=== PATIENT | female | born 1985 | race African-American/Black ===

== ENCOUNTER 2017-12-26 15:00 | Emergency (ER) | payer OTHER ==
[2017-12-26] MEDS ORDERED: KETOROLAC 30 MG/ML INJ ONE (16:51)
[2017-12-26] MEDS ORDERED: DIPHENHYDRAMINE 50 MG/ML VIAL ONE (16:51)
[2017-12-26] MEDS ORDERED: METOCLOPRAMIDE 10 MG/2mL INJ ONE (16:51)
--- NOTE | 2017-12-26 16:57 | ER ---
Nurse's Notes [facility] Name: Dewayne Gautam Age: 32 yrs Sex: Female : 1985 Arrival Date: 12/26/2017 Time: 15:03 Bed 11 Private MD: Diagnosis: Migraine Presentation: 12/26 15:18 Presenting complaint: Patient states: abel been having headache for a week now, reports hj ears being hot; denies fever and chills;. Transition of care: patient was not received from another setting of care. Onset of symptoms was December 26, 2017. Care prior to arrival: None. 15:18 Method Of Arrival: Ambulatory hj 15:18 Acuity: ISHMAEL 4 hj Triage Assessment: 15:19 Headache History: Denies prior headaches. General: Appears in no apparent distress. hj uncomfortable, Behavior is calm, cooperative, appropriate for age. Pain: Complains of pain in head Pain currently is 10 out of 10 on a pain scale. Quality of pain is described as aching, Pain began a week ago; Also complains of. 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 - Social history:: Smoking status: Patient/guardian denies using tobacco. Screenin:30 Abuse screen: Denies threats or abuse. Denies injuries from another. Nutritional sg screening: No deficits noted. Tuberculosis screening: No symptoms or risk factors identified. Never had TB. Fall Risk None identified. Assessment: 16:30 General: Appears in no apparent distress. comfortable, slender, well groomed, well sg developed, well nourished, Behavior is calm, cooperative, appropriate for age, Smells of alcohol. Pain: Complains of pain in top of head pt reports the pain moves all over her head, intermittently. Neuro: Level of Consciousness is awake, alert, obeys commands, Oriented to person, place, time, situation, Moves all extremities. Gait is steady, Speech is normal, Facial symmetry appears normal, Reports headache. Cardiovascular: Patient's skin is warm and dry. Chest pain is denied. Respiratory: No deficits noted. Airway is patent Respiratory effort is even, unlabored, Respiratory pattern is regular, symmetrical. GI: No deficits noted. No signs and/or symptoms were reported involving the gastrointestinal system. : No deficits noted. No signs and/or symptoms were reported regarding the genitourinary system. EENT: No signs and/or symptoms were reported regarding the EENT system. Derm: No signs and/or symptoms reported regarding the dermatologic system. Musculoskeletal: No signs and/or symptoms reported regarding the musculoskeletal system. 16:50 Reassessment: Patient appears in no apparent distress at this time. at bedside for PIV, sg pt states " oh no, can you just give me a prescription for some pills, cause i dont want all of that." pt family/friend states " yea we just need some scripts, cause [facility] so we just need some pills.". 16:55 Reassessment: Patient is alert, oriented x 3, equal unlabored respirations, skin sg warm/dry/pink. Yusuf BARRY notified of pt request. Vital Signs: 15:20 BP 127 / 84; Pulse 84; Resp 18; Temp 97.8(TE); Pulse Ox 100% on R/A; Weight 51.26 kg; hj Height 5 ft. 5 in. (165.10 cm); Pain 10/10; 16:30 BP 124 / 82; Pulse 79; Resp 18; Pulse Ox 99% on R/A; Pain 10/10; sg 15:20 Body Mass Index 18.81 (51.26 kg, 165.10 cm) ED Course: 15:03 Patient arrived in ED. rg4 15:19 Triage completed. hj 15:20 Arm band placed on right wrist. hj 16:22 Bucky Adams PA is PHCP. jr8 16:22 Renny Valdez MD is Attending Physician. jr8 16:30 Patient has correct armband on for positive identification. Bed in low position. Call sg light in reach. Pulse ox on. NIBP on. 16:33 Luis Salazar, RN is Primary Nurse. sg 17:00 No provider procedures requiring assistance completed. Patient did not have IV access sg during this emergency room visit. Administered Medications: 16:55 Not Given (Patient Refused): TORadol 30 mg IVP once iw 16:56 Not Given (Patient Refused): Reglan 10 mg IVP once; over 1 to 2 minutes iw 16:56 Not Given (Patient Refused): Benadryl 25 mg IVP once iw Outcome: 16:56 Discharge ordered by MD. banda 17:00 Discharged to home ambulatory, with family. 17:00 Condition: good 17:00 Discharge instructions given to patient, Instructed on discharge instructions, follow up and referral plans. medication usage, Demonstrated understanding of instructions, follow-up care, medications. 17:05 Patient left the ED. em Signatures: Luis Salazar RN RN sg Rashawn Johnson, WORKING FOREMAN WORKING FOREMAN em Bucky Adams, ASHA BARRY jr8 Shashi Cho RN RN hj Garcia, Rubi [facility], [place] Raquel Jiang RN iw Corrections: (The following items were deleted from the chart) 15:22 15:20 Pulse 84bpm; Resp 18bpm; Pulse Ox 100% RA; Temp 97.8F Temporal; 51.26 kg; Height hj 5 ft. 5 in.; BMI: 18.8; Pain 10/10; hj 15:26 15:18 Acuity: ISHMAEL 4 hj hj 16:17 15:18 Acuity: ISHMAEL 3 hj hj
--- NOTE | 2017-12-26 16:57 | EDPHYS ---
Physician Documentation [facility] Name: Dewayne Gautam Age: 32 yrs Sex: Female : 1985 Arrival Date: 12/26/2017 Time: 15:03 Bed 11 Private MD: ED Physician Renny Valdez HPI: 12/26 16:58 This 32 yrs old Black Female presents to ER via Ambulatory with complaints of Headache. jr8 16:58 The patient complains of pain to the back and top of head. The patient describes the jr8 headache as a pressure, throbbing. Onset: The symptoms/episode began/occurred acutely, 1 week(s) ago. Associated signs and symptoms: Pertinent positives: dizziness, Photophobia. Severity of symptoms: At its worst the pain was moderate, in the emergency department the pain is unchanged. Headache History: Denies prior headaches. The symptoms are alleviated by nothing. the symptoms are aggravated by lights, movement, noise. The patient has not experienced similar symptoms in the past. The patient has not recently seen a physician. has been trying OTC medications with minimal relief. Denies trauma to head or fevers . 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 - Social history:: Smoking status: Patient/guardian denies using tobacco. ROS: 16:58 Eyes: Negative for injury, pain, redness, and discharge, ENT: Negative for injury, jr8 pain, and discharge, Neck: Negative for injury, pain, and swelling, Cardiovascular: Negative for chest pain, palpitations, and edema, Respiratory: Negative for shortness of breath, cough, wheezing, and pleuritic chest pain, Back: Negative for injury and pain, MS/Extremity: Negative for injury and deformity, Skin: Negative for injury, rash, and discoloration. 16:58 Abdomen/GI: Positive for nausea, Negative for abdominal pain, vomiting, diarrhea, abdominal cramps, abdominal distension, anorexia, dysphagia, hematemesis, black/tarry stool, rectal pain, rectal bleeding, bowel incontinence, flatulence. 16:58 Neuro: Positive for dizziness, headache, Negative for altered mental status, gait disturbance, hearing loss, loss of consciousness, numbness, seizure activity, speech changes, syncope, near syncope, tingling, tinnitus, tremor, visual changes, weakness. Exam: 16:58 Head/Face: Normocephalic, atraumatic. Eyes: Pupils equal round and reactive to light, jr8 extra-ocular motions intact. Lids and lashes normal. Conjunctiva and sclera are non-icteric and not injected. Cornea within normal limits. Periorbital areas with no swelling, redness, or edema. ENT: Nares patent. No nasal discharge, no septal abnormalities noted. Tympanic membranes are normal and external auditory canals are clear. Oropharynx with no redness, swelling, or masses, exudates, or evidence of obstruction, uvula midline. Mucous membranes moist. Neck: Trachea midline, no thyromegaly or masses palpated, and no cervical lymphadenopathy. Supple, full range of motion without nuchal rigidity, or vertebral point tenderness. No Meningismus. Cardiovascular: Regular rate and rhythm with a normal S1 and S2. No gallops, murmurs, or rubs. Normal PMI, no JVD. No pulse deficits. Respiratory: Lungs have equal breath sounds bilaterally, clear to auscultation and percussion. No rales, rhonchi or wheezes noted. No increased work of breathing, no retractions or nasal flaring. Abdomen/GI: Soft, non-tender, with normal bowel sounds. No distension or tympany. No guarding or rebound. No evidence of tenderness throughout. Back: No spinal tenderness. No costovertebral tenderness. Full range of motion. Skin: Warm, dry with normal turgor. Normal color with no rashes, no lesions, and no evidence of cellulitis. MS/ Extremity: Pulses equal, no cyanosis. Neurovascular intact. Full, normal range of motion. Neuro: Awake and alert, GCS 15, oriented to person, place, time, and situation. Cranial nerves II-XII grossly intact. Motor strength 5/5 in all extremities. Sensory grossly intact. Cerebellar exam normal. Normal gait. Vital Signs: 15:20 BP 127 / 84; Pulse 84; Resp 18; Temp 97.8(TE); Pulse Ox 100% on R/A; Weight 51.26 kg; hj Height 5 ft. 5 in. (165.10 cm); Pain 10/10; 16:30 BP 124 / 82; Pulse 79; Resp 18; Pulse Ox 99% on R/A; Pain 10/10; sg 15:20 Body Mass Index 18.81 (51.26 kg, 165.10 cm) MDM: 16:22 Patient medically screened. jr8 16:55 Data reviewed: vital signs, nurses notes, and as a result, I will discharge patient. jr8 Data interpreted: Pulse oximetry: on room air is 100 %. Interpretation: normal. Counseling: I had a detailed discussion with the patient and/or guardian regarding: the historical points, exam findings, and any diagnostic results supporting the discharge/admit diagnosis, the need for outpatient follow up, a family practitioner, to return to the emergency department if symptoms worsen or persist or if there are any questions or concerns that arise at home. ED course: Patient opted to not have IV medicine to help headache. Wants to just take PO prescription at home . Administered Medications: 16:55 Not Given (Patient Refused): TORadol 30 mg IVP once iw 16:56 Not Given (Patient Refused): Reglan 10 mg IVP once; over 1 to 2 minutes iw 16:56 Not Given (Patient Refused): Benadryl 25 mg IVP once iw Disposition: 18:34 Co-signature as Attending Physician, Renny Valdez MD. rn Disposition: 18 16:56 Discharged to Home. Impression: Migraine. - Condition is Stable. - Discharge Instructions: Migraine Headache. - Prescriptions for Fioricet 50- 325-40 mg Oral tablet - take 2 tablet by ORAL route every 4 hours as needed not to exceed 6 tablets per 24hrs; 20 tablet. Zofran 4 mg Oral Tablet - take 1 tablet by ORAL route every 12 hours As needed; 20 tablet. - Work release form, Medication Reconciliation Form, Thank You Letter, Antibiotic Education, Prescription Opioid Use form. - Follow up: Private Physician; When: 2 - 3 days; Reason: Recheck today's complaints, Continuance of care, Re-evaluation by your physician. - Problem is new. - Symptoms have improved. Signatures: Luis Salazar RN RN sg Rashawn Johnson, CONDUIT CLEANER CONDUIT CLEANER Renny Rangel MD MD rn Roszak, Josh, PA PA jr8 Shashi Cho RN RN Raquel Fernandes RN iw Corrections: (The following items were deleted from the chart) 16:56 16:41 IV Saline Lock ordered. jr8 iw
== END 2017-12-26 17:05 | disposition home or self-care (01) ==
LOC: ER 15:00
DX: G43.909 Migraine, unspecified, not intractable, without status migrainosus (principal); F41.9 Anxiety disorder, unspecified
CPT/HCPCS: 99283; J2765

== ENCOUNTER 2018-04-12 22:07 | Emergency (ER) | payer OTHER ==
[2018-04-12 23:33] LABS: Absolute Lymphocytes (CBC) 2.4 K/uL (0.7-4.9); Absolute Monocytes 0.4 K/uL (0.1-1.3); Absolute Neutrophil 1.7 K/uL (1.8-8.0); Basophils % 0.9 % (0-1.3); Eosinophils % 2.4 % (0-4.4); Hematocrit 41.9 % (36.0-45.0); Lymphocytes % 52.7 % (15.3-44.8); MCH 29.3 pg (27.0-35.0); MCV 87.6 fL (80-100); Monocytes % 7.6 % (3.3-12.3); RBC Red Blood Cell Count 4.78 M/uL (3.86-4.86)
[2018-04-12 23:57] LABS: Urine Blood NEGATIVE (NEG); Urine Glucose NEGATIVE (NEG); Urine Protein NEGATIVE (NEG)
[2018-04-12] MEDS ORDERED: LIDOCAINE VISCOUS 2% SOLN 15 ML UDC ONE (23:59)
[2018-04-12] MEDS ORDERED: FAMOTIDINE 20 MG/2 ML VIAL IV ONE (23:59)
[2018-04-12] MEDS ORDERED: MAGNE/ALUM HYDROXD 30 ML UCUP ONE (23:59)
[2018-04-13] LABS: Urine Bacteria <20 /HPF (<20); Urine RBC <5 /HPF (NONE SEEN)
[2018-04-13 00:01] LABS: Urine Culture Reflex Order REFLEXED
[2018-04-13 00:34] LABS: ALT/SGPT 8 U/L (12-78); AST/SGOT 15 U/L (15-37); Albumin 4.2 g/dL (3.4-5.0); Alkaline Phosphatase 70 U/L (45-117); Amylase Level 108 U/L (25-115); BUN Blood Urea Nitrogen 10 mg/dL (7-18); Bicarbonate 25 mmol/L (21-32); Bilirubin Direct 0.1 mg/dL (0-0.2); Bilirubin Total 0.3 mg/dL (0.2-1.0); Glucose Level 81 mg/dL (74-106); Lipase 141 U/L (73-393); Magnesium 2.1 mg/dL (1.8-2.4); Protein, Total 8.1 g/dL (6.4-8.2); Sodium Level 138 mmol/L (136-145)
--- NOTE | 2018-04-13 01:31 | ER ---
Nurse's Notes [facility] Name: Dewayne Gautam Age: 32 yrs Sex: Female : 1985 Arrival Date: 04/12/2018 Time: 22:08 Bed 16 Private MD: Diagnosis: Epigastric pain;Other chest pain-Retrosternal Presentation: 04/12 22:30 Presenting complaint: Patient states: that she is having mid sternal chest pain that fc sims. Denies any radiation of the pain. Denies any nausea, vomiting or shortness of breath. Transition of care: patient was not received from another setting of care. Onset of symptoms was April 11, 2018 at 14:00. Risk Assessment: Do you want to hurt yourself or someone else? Patient reports no desire to harm self or others. Initial Sepsis Screen: Does the patient meet any 2 criteria? No. Patient's initial sepsis screen is negative. Does the patient have a suspected source of infection? No. Patient's initial sepsis screen is negative. Care prior to arrival: None. 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 - Social history:: Smoking status: Patient uses tobacco products, smokes one pack cigarettes per day. - Ebola Screening: : Patient negative for fever greater than or equal to 101.5 degrees Fahrenheit, and additional compatible Ebola Virus Disease symptoms Patient denies exposure to infectious person Patient denies travel to an Ebola-affected area in the 21 days before illness onset. Screenin/26 00:22 Abuse screen: Denies threats or abuse. Nutritional screening: No deficits noted. jd3 Tuberculosis screening: No symptoms or risk factors identified. Fall Risk IV access (20 points). Ambulatory Aid- None/Bed Rest/Nurse Assist (0 pts). Gait- Normal/Bed Rest/Wheelchair (0 pts) Mental Status- Oriented to own ability (0 pts). Total Vasquez Fall Scale indicates No Risk (0-24 pts). Assessment: 04/12 22:40 General: Appears in no apparent distress. uncomfortable, slender, Behavior is bs1 cooperative, flat. Pain: Complains of pain in mid chest Pain does not radiate. Pain began 1 day ago. patient states pain is intermittently and is a burning pain in chest. Neuro: Level of Consciousness is awake, alert, obeys commands. Cardiovascular: Reports chest pain, Denies shortness of breath, Heart tones S1 S2 present Capillary refill < 3 seconds Patient's skin is warm and dry. Respiratory: Airway is patent Trachea midline Respiratory effort is even, unlabored, Respiratory pattern is regular, symmetrical, Breath sounds are clear bilaterally. GI: Abdomen is flat, non-distended, Bowel sounds present X 4 quads. Patient currently denies abdominal pain. : No signs and/or symptoms were reported regarding the genitourinary system. EENT: No signs and/or symptoms were reported regarding the EENT system. Derm: Skin is intact, Skin is pink, warm \\T\\ dry. normal. Musculoskeletal: Circulation, motion, and sensation intact. Capillary refill < 3 seconds, Range of motion: intact in all extremities. 23:45 Reassessment: Patient appears in no apparent distress at this time. Patient and/or bs1 family updated on plan of care and expected duration. Pain level reassessed. Patient is alert, oriented x 3, equal unlabored respirations, skin warm/dry/pink. Informed patient of POC, pending lab results. 04/13 00:05 Reassessment: Informed patient that Provider Terry Siegel has prescribed a GI cocktail bs1 which will coat the lining of the stomach/esophagus that may help ease the burning pain, also pepcid which is an acid benzol operator that will help decrease the acidity in the stomach that will help with acid reflux. Patient states "I came in for chest pain and burning pain in my chest not pain in my stomach, yall are treating me for pain in my stomach, No Im not going to take that." Nurse informed patient that we sent off blood work to check the cardiac enzymes to make sure everything is okay, the provider is treating with these medications to pretreat for any acid reflux that could be causing that burning pain. Nurse asked patient "Okay, are you refusing these medications?" Patient states "Yes." Nurse states "Okay that is fine, I will let the provider know." Nurse left to use the restroom, as Nurse was walking back towards nurses station, prep manager Inez informed nurse that patient does not want me back in the room and that nurse had an attitude. Nurse Chou informed Charge nurse Lilliana Siegel. 00:14 Reassessment: Patient appears in no apparent distress at this time. No changes from jd3 previously documented assessment. Patient and/or family updated on plan of care and expected duration. Pain level reassessed. Patient is alert, oriented x 3, equal unlabored respirations, skin warm/dry/pink. 00:15 Reassessment: Report handed off to GOPI Hart. bs1 00:20 Reassessment: Provider Page at bedside communicating about POC. bs1 01:32 Reassessment: Patient appears in no apparent distress at this time. No changes from jd3 previously documented assessment. Patient and/or family updated on plan of care and expected duration. Pain level reassessed. Patient is alert, oriented x 3, equal unlabored respirations, skin warm/dry/pink. Vital Signs: 04/12 22:34 BP 117 / 86; Pulse 60; Resp 18; Temp 98.8(O); Pulse Ox 99% on R/A; Weight 54.88 kg (R); fc Height 5 ft. 6 in. (167.64 cm) (R); Pain 10/10; 04/13 00:13 BP 105 / 83; Pulse 58; Resp 16 S; Pulse Ox 100% on R/A; jd3 01:32 BP 99 / 71; Pulse 56; Resp 18 S; Pulse Ox 100% on R/A; jd3 04/12 22:34 Body Mass Index 19.53 (54.88 kg, 167.64 cm) ED Course: 04/12 22:08 Patient arrived in ED. es 22:31 Triage completed. fc 22:32 Arm band placed on Patient placed in an exam room, on a stretcher. fc 22:38 Effie Hernandez, GOPI is Primary Nurse. bs1 23:10 Inserted saline lock: 20 gauge in right antecubital area, using aseptic technique. jd3 Blood collected. placed by BS RN. 23:11 Terry Siegel PA is PHCP. 23:11 Terry Meredith MD is Attending Physician. cp 04/13 00:22 X-ray completed. Portable x-ray completed in exam room. Patient tolerated procedure ml well. 00:22 Patient has correct armband on for positive identification. Placed in gown. Bed in low jd3 position. Call light in reach. Side rails up X 1. Adult w/ patient. radiation monitor on. Pulse ox on. NIBP on. 00:23 XRAY Chest (1 view) In Process Unspecified. EDMS 00:23 Patient maintains SpO2 saturation greater than 95% on room air. jd3 00:25 Primary Nurse role handed off by Effie Hernandez, GOPI jd3 00:25 Lucas Noble, GOPI is Primary Nurse. jd3 01:28 Brii Jarrett MD is Referral Physician. cp 01:32 No provider procedures requiring assistance completed. jd3 01:44 IV discontinued, intact, bleeding controlled, No redness/swelling at site. Pressure jd3 dressing applied. Administered Medications: 00:21 Not Given (Patient Refused): GI Cocktail without - (Maalox Suspension 30 ml, jd3 Lidocaine Liquid 2 % 15 ml) PO once; if test negative 00:22 Not Given (Patient Refused): Pepcid 20 mg IVP once jd3 Outcome: 01:30 Discharge ordered by MD. cp 01:43 Discharged to home ambulatory, with family. jd3 01:43 Condition: stable 01:43 Discharge instructions given to patient, family, Instructed on discharge instructions, follow up and referral plans. medication usage, Demonstrated understanding of instructions, follow-up care, medications, Prescriptions given X 2. 01:44 Patient left the ED. jd3 Addendum: 04/16/2018 16:06 Addendum: Culture Results: Positive urine culture. Phone call Attempt #1 no answer, s s left Certified letter sent to listed address for patient. 19:33 Addendum: Culture Results: Positive urine culture. Prescription called-in to pharmacy f c of choice. Pt notified of results and Rx for Augmentin 875 mg po bid x 10 day with no refills called into [facility] in [place] [phone]. Message left on their answering machine. Signatures: Dispatcher [employer] EDOK Prachi Jules Felicia, RN RN Tatiana Romero Shelby, RN RN ss Terry Siegel PA PA cp Davies, Jonathon, RN RN jd3 Effie Hernandez RN RN bs1 Corrections: (The following items were deleted from the chart) 04/13 00:25 00:23 Inserted saline lock: 20 gauge in right antecubital area, using aseptic jd3 technique. Blood collected. jd3
--- NOTE | 2018-04-13 01:31 | EDPHYS ---
Physician Documentation [facility] Name: Dewayne Gautam Age: 32 yrs Sex: Female : 1985 Arrival Date: 04/12/2018 Time: 22:08 Bed 16 Private MD: ED Physician Terry Meredith HPI: 04/12 23:20 This 32 yrs old Black Female presents to ER via Ambulatory with complaints of Chest cp Pain. 23:20 The patient or guardian reports chest pain that is located primarily in the epigastric cp area, xyphoid area. 23:20 The pain does not radiate. Associated signs and symptoms: Pertinent positives: nausea, cp Pertinent negatives: cough, diaphoresis, lower extremity pain, lower extremity swelling, lightheadedness, shortness of breath, vomiting. The chest pain is described as burning. Duration: The patient or guardian reports multiple episodes, that wax and wane. Modifying factors: the symptoms are aggravated by nothing. Severity of pain: in the emergency department the pain has improved moderately. 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 - Social history:: Smoking status: Patient uses tobacco products, smokes one pack cigarettes per day. - Ebola Screening: : Patient negative for fever greater than or equal to 101.5 degrees Fahrenheit, and additional compatible Ebola Virus Disease symptoms Patient denies exposure to infectious person Patient denies travel to an Ebola-affected area in the 21 days before illness onset. ROS: 23:25 Constitutional: Negative for body aches, chills, fever, poor PO intake. cp 23:25 Eyes: Negative for injury, pain, redness, and discharge. cp 23:25 ENT: Negative for drainage from ear(s), ear pain, sore throat, difficulty swallowing, difficulty handling secretions. 23:25 Cardiovascular: Positive for chest pain, of the xyphoid area, Negative for edema, palpitations. 23:25 Respiratory: Negative for cough, shortness of breath, wheezing. 23:25 Abdomen/GI: Positive for abdominal pain, of the epigastric area, Negative for vomiting, diarrhea, constipation, anorexia, black/tarry stool, rectal bleeding. 23:25 Back: Negative for radiated pain. 23:25 : Negative for urinary symptoms. 23:25 Skin: Negative for cellulitis, rash. 23:25 Neuro: Negative for altered mental status, headache, weakness. 23:25 All other systems are negative. Exam: 22:55 ECG was reviewed by the Attending Physician. cp 23:27 Constitutional: The patient appears in no acute distress, alert, awake, cp non-diaphoretic, non-toxic, well developed, well nourished. 23:27 Head/Face: Normocephalic, atraumatic. cp 23:27 Eyes: Periorbital structures: appear normal, Conjunctiva: normal, no exudate, no injection, Sclera: no appreciated abnormality, Lids and lashes: appear normal, bilaterally. 23:27 ENT: External ear(s): are unremarkable, Ear canal(s): are normal, clear, TM's: bulging, is not appreciated, bilaterally, dullness, bilaterally, erythema, is not appreciated, bilaterally, Nose: is normal, Mouth: Lips: moist, Oral mucosa: pink and intact, moist, Posterior pharynx: is normal, airway is patent, no erythema, no exudate. 23:27 Neck: ROM/movement: is normal, is supple, without pain, no range of motions limitations, no nuchal rigidity. 23:27 Chest/axilla: Inspection: normal, Palpation: crepitus, is not appreciated, tenderness, that is mild, of the xyphoid area, that partially reproduces the patient's complaints. 23:27 Cardiovascular: Rate: normal, Rhythm: regular, Pulses: Pulses are 2+ in right radial artery and left radial artery. Edema: is not appreciated, JVD: is not appreciated. 23:27 Respiratory: the patient does not display signs of respiratory distress, Respirations: normal, no use of accessory muscles, no retractions, no splinting, no tachypnea, labored breathing, is not present, Breath sounds: are clear throughout, no decreased breath sounds, no stridor, no wheezing. 23:27 Abdomen/GI: Inspection: Bowel sounds: normal, in all quadrants, Palpation: soft, in all quadrants, mild abdominal tenderness, in the epigastric area, rebound tenderness, is not appreciated, voluntary guarding, is not appreciated, involuntary guarding, is not appreciated. 23:27 Back: pain, is absent, ROM is normal. 23:27 Skin: cellulitis, is not appreciated, no rash present. Vital Signs: 22:34 BP 117 / 86; Pulse 60; Resp 18; Temp 98.8(O); Pulse Ox 99% on R/A; Weight 54.88 kg (R); fc Height 5 ft. 6 in. (167.64 cm) (R); Pain 10; 04/13 00:13 BP 105 / 83; Pulse 58; Resp 16 S; Pulse Ox 100% on R/A; jd3 01:32 BP 99 / 71; Pulse 56; Resp 18 S; Pulse Ox 100% on R/A; jd3 04/12 22:34 Body Mass Index 19.53 (54.88 kg, 167.64 cm) fc MDM: 04/12 23:11 Patient medically screened. 23:45 Differential diagnosis: abnormal EKG, acute pericarditis, anxiety, chest wall pain, cp cholecystitis, Cholelithiasis costochondritis, esophagitis, gastritis, pancreatitis, pericarditis, pleurisy, pneumonia, pneumothorax, pulmonary embolus. 04/13 01:28 Data reviewed: vital signs, nurses notes, lab test result(s), EKG, radiologic studies, cp plain films, and as a result, I will discharge patient. 01:28 Test interpretation: by ED physician or midlevel provider: ECG, plain radiologic cp studies. 04/12 22:45 Order name: Urine Dipstick--Ancillary (enter results); Complete Time: 00:13 [facility] 04/13 00:14 Interpretation: Normal except: UESTR 1+. 04/12 22:45 Order name: Urine --Ancillary (enter results); Complete Time: 00:13 [facility] 04/13 01:27 Interpretation: Reviewed. 04/12 23:16 Order name: Amylase, Serum; Complete Time: 01: 04/12 23:16 Order name: Basic Metabolic Panel; Complete Time: 01: 04/12 23:16 Order name: CBC with Diff; Complete Time: 00:13 04/13 00:14 Interpretation: Normal except: PLT 107; MPV 12.0; JEANNE% 36.4; LYM% 52.7; NEUT A 1.7. 04/12 23:16 Order name: Creatinine for Radiology; Complete Time: 00:13 04/12 23:16 Order name: Hepatic Function; Complete Time: : 04/13 01:26 Interpretation: Normal except: ALT 8; GLOB 3.9. 04/12 23:16 Order name: Lipase; Complete Time: 01: 04/12 23:16 Order name: Urine Microscopic Only 04/12 23:16 Order name: Troponin I; Complete Time: 00:13 04/13 00:14 Interpretation: Within normal limits: TROP < 0.02. 04/12 23:16 Order name: Magnesium; Complete Time: 01: 04/12 23:47 Order name: XRAY Chest (1 view) 04/13 00:04 Order name: Urine Culture EDSD 04/12 23:16 Order name: IV Saline Lock; Complete Time: 00:10 04/12 23:16 Order name: Labs collected and sent; Complete Time: 00:10 04/12 23:16 Order name: Urine Dipstick-Ancillary (obtain specimen); Complete Time: 00:10 04/12 23:16 Order name: EKG; Complete Time: 23:17 04/12 23:16 Order name: EKG - Nurse/Tech; Complete Time: 00:10 cp EC/25 22:55 Rate is 58 beats/min. Rhythm is regular. DC interval is normal. QRS interval is normal. cp QT interval is normal. No ST changes noted. Interpreted by me. Reviewed by me. Administered Medications: 04/13 00:21 Not Given (Patient Refused): GI Cocktail without - (Maalox Suspension 30 ml, jd3 Lidocaine Liquid 2 % 15 ml) PO once; if test negative 00:22 Not Given (Patient Refused): Pepcid 20 mg IVP once jd3 Disposition: 06:54 Co-signature as Attending Physician, Terry Meredith MD I agree with the assessment and damaso plan of care. Disposition: 04/13/18 01:30 Discharged to Home. Impression: Epigastric pain, Other chest pain - Retrosternal. - Condition is Stable. - Discharge Instructions: Nonspecific Chest Pain, Gastroesophageal Reflux Disease, Adult, Form - Excuse from Work, School, or Physical Activity. - Prescriptions for Pepcid 20 mg Oral Tablet - take 1 tablet by ORAL route every 12 hours for 10 days; 20 tablet. Protonix 40 mg Oral Tablet - take 1 tablet by ORAL route once daily; 30 tablet. - Medication Reconciliation Form, Thank You Letter, Antibiotic Education, Prescription Opioid Use, Work release form form. - Follow up: Brii Jarrett MD; When: 2 - 3 days; Reason: pain continues. - Problem is new. - Symptoms are unchanged. Signatures: Dispatcher [employer] EDMS Terry Meredith MD MD cha Chretien, Felicia RN RN fc Terry Siegel PA PA Lucas Aldana RN RN jd3 Corrections: (The following items were deleted from the chart) 01:44 01:30 04/13/2018 01:30 Discharged to Home. Impression: Epigastric pain; Other chest jd3 pain - Retrosternal. Condition is Stable. Forms are Medication Reconciliation Form, Thank You Letter, Antibiotic Education, Prescription Opioid Use. Follow up: Brii Jarrett; When: 2 - 3 days; Reason: pain continues. Problem is new. Symptoms are unchanged. cp
--- NOTE | 2018-04-13 06:48 | EKG ---
Test Date: 2018-04-12 Test Time: 22:48:35 Train Operator: ANURADHA MEASUREMENT RESULTS: Intervals: Rate: 58 MN: 146 QRSD: 100 QT: 442 QTc: 433 [place]: P: 13 MN: 146 QRS: 62 T: 31 INTERPRETIVE STATEMENTS: Sinus bradycardia with premature atrial complexes Otherwise normal ECG Compared to ECG 10/25/2017 10:04:11 Atrial premature complex(es) now present Sinus rhythm no longer present Sinus arrhythmia no longer present Electronically Signed On 04-13-18 06:47:56 CDT by Bassam Zaldivar
--- NOTE | 2018-04-13 08:45 | RAD REPORT ---
EXAM DESCRIPTION: RAD - Chest Single View - 04/13/2018 12:23 am CLINICAL HISTORY: epigastric/retrosternal pain Chest pain. COMPARISON: Chest Pa And Lat (2 Views) dated 10/25/2017; Chest Single View dated 12/14/2016 FINDINGS: Portable technique limits examination quality. The lungs are grossly clear. The heart is normal in size. No displaced fractures. IMPRESSION: No acute intrathoracic process suspected.
== END 2018-04-13 01:44 | disposition home or self-care (01) ==
LOC: ER 22:07
DX: R10.13 Epigastric pain (principal); R07.89 Other chest pain; Z88.6 Allergy status to analgesic agent
CPT/HCPCS: 36415; 71045; 80048; 80076; 81003; 81015; 81025; 82150; 83690; 83735; 84484; 85025; 87077; 87086; 87088; 87186; 93005; 99285